=== PATIENT | female | born 1985 | race Caucasian/White ===

== ENCOUNTER 2021-06-14 17:48 | Emergency (ER) | payer OTHER ==
[~2021-06-14] VITALS: Ht 162.6 cm; Wt 47.6 kg
[~2021-06-14 17:48] MED LIST: DARVOCET-N 1001 EACH PO; IBUPROFEN 800800 M1 PO; LORATIDINE 10 M10 M1 PO; MACROBID 100 M100 M1 PO; NOHOMEMEDICATIONS; NORCO 5-325 TA1 EACH PO; NORFLEX100 MG PO; PENICILLIN VK250 MG PO; ULTRAM 50MG TAB50 MG PO; XANAX 0.25 MG0.25 MG PO; XANAX 0.5 MG0.5 MG; XANAX 0.5 MG0.5 MG PO; ZOFRAN 4 MG ORAL4 M1 DIS
[2021-06-14] MEDS ORDERED: HYDROCODON-ACE1 EAC7 PO (20:54)
[2021-06-14 21:13] VITALS: BP 110/55
== END 2021-06-14 21:15 | disposition home or self-care (01) ==
LOC: M.ERS 17:48
DX: M25.561 Pain in right knee (principal); M79.89 Other specified soft tissue disorders; F41.9 Anxiety disorder, unspecified; Z98.890 Other specified postprocedural states; X50.1XXA Overexertion from prolonged static or awkward postures, initial encounter; Y93.89 Activity, other specified; Y92.89 Other specified places as the place of occurrence of the external cause; Y99.8 Other external cause status